=== PATIENT | female | born 1990 | race Caucasian/White ===

== ENCOUNTER 2021-11-04 16:45 | Emergency (ER) | payer BC, SELFPAY ==
[2021-11-04 16:46] VITALS: BP 117/85; PULSE 66; RESP 18; TEMP 36.9; O2SAT 97; BMI 26.6
[2021-11-04 17:23] LABS: Microscopic, Urine URINE MICROSCOPIC (MICROSCOPIC)
[2021-11-04 17:25] LABS: Basophils # 0.1 K/mm3 (0-0.2); Basophils % 2.3 % (0.1-2.0); Eosinophils # 0.2 K/mm3 (0.0-0.4); Eosinophils % 3.9 % (0.1-12.0); Hematocrit 44.7 % (37.0-47.0); Hemoglobin 14.8 g/dL (12.2-16.2); Lymphocytes # 2.4 K/mm3 (0.7-4.5); Lymphocytes % 41.2 % (10-50); Mean Corpuscular HGB Conc 33.2 g/dL (31.8-35.4); Mean Corpuscular Hemoglobin 31.3 pg (27.0-31.2); Mean Corpuscular Volume 94.4 fl (81-99); Monocytes # 0.3 K/mm3 (0.1-1.0); Monocytes % 5.2 % (1.7-9.3); Neutrophils # 2.8 K/mm3 (1.8-7.8); Neutrophils % 47.4 % (37.0-80.0); Platelet Count 361 K/mm3 (142-424); Red Blood Count 4.73 M/mm3 (4.20-5.40); White Blood Count 5.8 K/mm3 (4.8-10.8)
[2021-11-04 17:27] LABS: Chloride 101 mmol/L (98-107)
[2021-11-04 17:28] LABS: Potassium 3.6 mmoL/L (3.5-5.1); Sodium 136 mmol/L (136-145)
[2021-11-04 17:30] LABS: Alanine Aminotransferase 41 U/L (12-78); Albumin Level 4.5 g/dl (3.5-5.0); Albumin/Globulin Ratio 1.4 (1.1-1.8); Alkaline Phosphatase 72 U/L (38-126); Anion Gap 11.6 mEq/L (5-15); Appearance,Urine CLEAR (Clear); Aspartate Amino Transferase 41 U/L (14-36); Bilirubin,Total 0.5 mg/dl (0.2-1.3); Bilirubin,Urine Negative (Negative); Blood Urea Nitrogen 7 mg/dl (7-17); Blood, Urine TRACE-I (Negative); Carbon Dioxide 27 mmol/L (22.0-30.0); Color,Urine YELLOW (Yellow); Creatinine Clearance Estimated 150 mL/min (50-200); Estimated Glomerular Filt Rate 98 ml/min (>60); GFR (African American) 118 ML/MIN (>60); Globulin 3.3 g/dL (1.3-3.2); Glucose,Urine (UA) Negative (Negative); Ketones,Urine Negative (Negative); Leukocyte Esterase,Urine Negative (Negative); Nitrate,Urine Negative (Negative); PH,Urine 6.5 (5.0-8.5); Protein,Urine Negative (Negative); Specific Gravity, Urine 1.025 (1.005-1.030); Total Protein,Serum 7.8 g/dl (6.3-8.2); Urobilinogen,Urine 0.2 EU/dl (0.2)
[2021-11-04 17:31] VITALS: BP 116/50; PULSE 75; O2SAT 99
[2021-11-04 17:31] LABS: Calcium 9.3 mg/dl (8.4-10.2); Glucose 92 mg/dl (74-100)
[2021-11-04 18:01] LABS: Bacteria,Urine 1+ /lpf; Mucus,Urine 1+ /lpf; RBC,Urine Occasional #/hpf (0-3)
--- NOTE | 2021-11-04 18:12 | [facility].EDGENADL ---
ED Disposition Clinical Impression: COVID-19, Asymptomatic bacteriuria during Disposition: Home, Self-Care Condition on Discharge: Good Prescriptions: Nitrofurantoin Monohyd/M-Cryst [Macrobid 100 mg Capsule] 100 mg PO BID #10 cap Transmission Status: Pending to [facility] Ondansetron [Zofran 4mg ODT] 4 mg PO TIDP PRN #12 tab PRN Reason: Nausea Transmission Status: Pending to [facility] Referrals: Isatu Clinton [Primary Care Provider] - - Critical Care Critical Care Time: No Attestation: On 11/04/21, the high probability of a clinically significant, sudden or life threatening deterioration of the following system(s) required my full and direct attention, intervention and personal management. The time I documented below is in addition to time spent performing reported procedures but includes the following listed in this critical care notation. Medical Decision Making - Eliu Inquiry Pt receiving controlled substance: No Vital Signs: 11/04/21 16:46 11/04/21 17:31 Temperature 98.5 F Temperature Source Oral Pulse Rate 75 Pulse Rate [Left Radial] 66 Respiratory Rate 18 Blood Pressure 116/50 L Blood Pressure [Right Arm] 117/85 Blood Pressure Mean [Right Arm] 95 Blood Pressure Source [Right Arm] Automatic Cuff Blood Pressure Position [Right Arm] Sitting 02 Sat by Pulse Oximetry 97 99 Oxygen Delivery Method Room Air - Lab Data Lab Results 11/04/21 17:05: Urine Color Yellow, Urine Appearance Clear, Urine pH 6.5, Ur Specific Waldron 1.025, Urine Protein Negative, Urine Glucose (UA) Negative, Urine Ketones Negative, Urine Blood Trace-i, Urine Nitrate Negative, Urine Bilirubin Negative, Urine Urobilinogen 0.2, Ur Leukocyte Esterase Negative, Urine RBC Occasional, Urine WBC 3-5, Ur Squamous Epith Cells 3-5, Urine Bacteria 1+, Urine Mucus 1+ 11/04/21 17:05: WBC 5.8, RBC 4.73, Hgb 14.8, Hct 44.7, MCV 94.4, MCH 31.3 H, MCHC 33.2, RDW 13.0, Plt Count 361, MPV 8.0, Neut % (Auto) 47.4, Lymph % (Auto) 41.2, Ward % (Auto) 5.2, Eos % (Auto) 3.9, Baso % (Auto) 2.3 H, Neut # (Auto) 2.8, Lymph # (Auto) 2.4, Ward # (Auto) 0.3, Eos # (Auto) 0.2, Baso # (Auto) 0.1 11/04/21 17:05: Sodium 136, Potassium 3.6, Chloride 101, Carbon Dioxide 27, Anion Gap 11.6, BUN 7, Creatinine 0.70, Estimated Creat Clear 150, Estimated GFR 98, Est GFR ( Amer) 118, Glucose 92, Calcium 9.3, Total Bilirubin 0.5, AST 41 H, ALT 41, Alkaline Phosphatase 72, Total Protein 7.8, Albumin 4.5, Globulin 3.3 H, Albumin/Globulin Ratio 1.4, HCG, Quant [id number] H 11/04/21 17:05: Magnesium 1.7 Result diagrams: 11/04/21 17:05 11/04/21 17:05 Orders (Tests/Meds): ED MEDICATIONS Discontinued Medications Generic Name Dose Route Start Last Admin Trade Name Hakeem PRN Reason Stop Dose Admin Acetaminophen 500 mg 11/04/21 18:17 11/04/21 18:27 Acetaminophen 500mg Tab PO 11/04/21 18:18 500 mg ONCE ONE Administration Ondansetron HCl 4 mg 11/04/21 18:17 11/04/21 18:26 Ondansetron 4mg/2ml Vial IV 11/04/21 18:18 4 mg ONCE ONE Administration ORDERS Category Date Time Status Urine Culture Stat Micro 11/04/21 18:11 Received Medical Decision Narrative: DDx includes but not limited to URI, electrolyte abnormality, dehydration, miscarriage. HDS, NAD, well appearing, on room air, afebrile. No chest pain or dyspnea acutely. History and physical suggestive of URI. Has known covid-19 infection. Will obtain cbc, cmp, mg, beta hcg, ua. Labs not acutely actionable in ED, but UA with bacteria, will treat as asymptomatic bacteruria. Will rx zofran and macrobid. Advised to have beta hcg rechecked in 48 hours (today it was [id number]). She is amenable to plan. Given ED return precautions. General Adult HPI - General Chief complaint: Weakness Stated complaint: 7wk Preg, Covid+, weakness Time Seen by Provider: 11/04/21 17:50 Mode of Arrival: Ambulatory Limitations: No Limitations Description of Symptoms
[2021-11-04 18:13] LABS: HCG,Quantitative 98100 mIU/ml (0-5.42)
[2021-11-04 18:21] LABS: Magnesium 1.7 mg/dl (1.6-2.3)
[2021-11-04 20:07] VITALS: BP 120/75; PULSE 72; RESP 18; TEMP 36.9; O2SAT 99
== END 2021-11-04 20:08 | disposition home or self-care (01) ==
PROVIDERS: Emergency Provider Student in an Organized Health Care Education/Training Program; PCP Nurse Practitioner Family
DX: U07.1 COVID-19 (principal); Z3A.08 8 weeks gestation of pregnancy; R50.9 Fever, unspecified; R11.0 Nausea
CPT/HCPCS: 80053; 81001; 83735; 84702; 85025; 87086; 99283; J2405